=== PATIENT | female | born 1980 | race Caucasian/White ===

== ENCOUNTER 2016-06-19 03:05 | Emergency (ER) | payer OTHER ==
[~2016-06-19 03:05] MED LIST: AUGMENTIN PO; VICODIN 5/500 T1 TAB PO
== END 2016-06-19 03:30 | disposition left against medical advice (07) ==
LOC: CED 03:05
DX: Z53.21 Procedure and treatment not carried out due to patient leaving prior to being seen by health care provider (principal)